=== PATIENT | female | born 1950 | race American Indian/Alaskan Native ===

== ENCOUNTER 2019-10-14 08:05 | Emergency (ER) | payer MEDICARE ==
--- NOTE | 2019-10-14 09:17 | XRay Report ---
Right wrist-2 views INDICATION: trauma. Fall today with generalized wrist pain COMPARISON: None. IMPRESSION: There is a fracture involving the neck of the thumb metacarpal which appears to be old. Otherwise no acute fracture identified. There is mild soft tissue swelling along the dorsal aspect of the wrist/distal forearm and mild degenerative changes in the wrist. Signer Name: Benito Colorado MD Signed: 10/14/2019 9:13 AM Workstation Name: [id number]
[2019-10-14] MEDS ORDERED: HYDROcodone/ACETAMINOPHEN 5-325 MG TAB PO ONE (09:20)
[2019-10-14 09:38] LABS: HCG Qualitative,Urine Negative (Negative)
[2019-10-14 09:45] LABS: Basophils # (Auto) 0.1 K/mm3 (0.0-0.1); Basophils % (Auto) 0.9 % (0.0-1.8); Eosinophils # (Auto) 0.4 K/mm3 (0.0-0.4); Eosinophils % (Auto) 5.4 % (0.0-4.3); Hemoglobin 14.1 gm/dl (10.1-14.3); Lymphocytes # (Auto) 1.9 K/mm3 (1.2-5.4); Lymphocytes % (Auto) 28.3 % (13.4-35.0); Mean Corpuscular HGB Conc 34 % (30-34); Mean Corpuscular Volume 98 fl (79-97); Monocytes # (Auto) 0.6 K/mm3 (0.0-0.8); Monocytes % (Auto) 9.4 % (0.0-7.3); Platelet Count 199 K/mm3 (140-440); Red Blood Count 4.17 M/mm3 (3.65-5.03); Red Cell Distribution Width 13.2 % (13.2-15.2)
[2019-10-14 09:46] LABS: Amphetamine Screen,Urine PRESUMPTIVE NEGATIVE; Benzodiazepines Screen,Urine PRESUMPTIVE NEGATIVE; Cannabinoid Screen,Urine PRESUMPTIVE NEGATIVE; Cocaine Screen,Urine PRESUMPTIVE NEGATIVE; Methadone Screen,Urine PRESUMPTIVE NEGATIVE; Opiate Screen,Urine PRESUMPTIVE NEGATIVE
[2019-10-14] MEDS ORDERED: THIAMINE 100 MG, FOLIC ACID 1 MG, MULTIPLE VITAMIN INJ, ADULT 10 ML in SODIUM CHLORIDE ... IV ONE (10:00)
[2019-10-14 10:01] LABS: INR 1.02 (0.87-1.13)
[2019-10-14 10:02] LABS: Partial Thromboplastin Time 28.1 Sec. (24.2-36.6)
[2019-10-14 10:14] LABS: Creatine Kinase MB 1.2 ng/mL (0.0-4.0)
[2019-10-14 10:16] LABS: Alanine Aminotransferase 34 units/L (7-56); Albumin 4.1 g/dL (3.9-5); BUN/Creatinine Ratio 13; Bilirubin,Direct < 0.2 mg/dL (0-0.2); Blood Urea Nitrogen 8 mg/dL (7-17); Hemolysis Index 22
--- NOTE | 2019-10-14 10:18 | Cat Scan Report ---
CT HEAD WITHOUT CONTRAST INDICATION / CLINICAL INFORMATION: trauma. Head injury secondary to patient fall. TECHNIQUE: All CT scans at this location are performed using CT dose reduction for ALARA by means of automated e xposure control. COMPARISON: None available. FINDINGS: HEMORRHAGE: No evidence of intracranial hemorrhage or extra-axial fluid collection. EXTRA-AXIAL SPACES: Cortical sulci and sylvian fissures are enlarged reflecting a degree of parenchym al volume loss which is within normal limits for the patient's age. Basilar cisterns have an unremark able appearance. VENTRICULAR SYSTEM: The third and lateral ventricles are enlarged reflecting presence of age related parenchymal volume loss. Incidental note is made of developmental asymmetry of the lateral ventricles , right larger. CEREBRAL PARENCHYMA: Periventricular and deep white matter lucency is observed. This is probably seco ndary to microvascular ischemic change. There is no indication of recent infarction. Is evidence of a remote small deep infarction in the right ganglia capsular region. MIDLINE SHIFT OR HERNIATION: There is no mass effect. CEREBELLUM / BRAINSTEM: Brainstem and cerebellum have an unremarkable appearance. INTRACRANIAL VESSELS:Calcified atherosclerotic plaque is present along the course of the cavernous se gments of both internal carotid arteries. Similar findings are seen at the distal vertebral arteries. ORBITS: visualized portions of the orbits have an unremarkable appearance. SOFT TISSUES of HEAD: No significant abnormality. CALVARIUM: Evaluation of bone windows reveals no abnormalities. 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 Paranasal sinuses are free from inflammatory mucosal disease. Mastoid a ir cells are normally pneumatized. ADDITIONAL FINDINGS: None. IMPRESSION: 1. No acute intracranial abnormality. 2. Moderate parenchymal atrophy 3. Remote small deep infarction right gangliocapsular region. Signer Name: Will Devine MD Signed: 10/14/2019 10:14 AM Workstation Name: [id number]
[2019-10-14] MEDS ORDERED: MAGNESIUM SULFATE 2 GM/50 ML BAG IV ONE (13:15)
--- NOTE | 2019-10-14 15:17 | Emergency Department Report ---
ED General Adult HPI - General Chief complaint: Fall Stated complaint: FALL/RT WRIST PAIN Time Seen by Provider: 10/14/19 08:37 Source: patient Mode of arrival: Stretcher Limitations: No Limitations - History of Present Illness Initial comments: 68-year-old female who admits to excessive alcohol consumption. She fell and injured her right wrist. She states that occurred a few hours prior to arrival. She stated she was not sure if she hit her head because it's a little bit sore. However, she denies any loss of consciousness. She has no retrograde amnesia. She denies neck pain back pain or other injury. -: Gradual Location: head (questionable), right, upper extremity Radiation: non-radiation Severity scale (0 -10): 2 Quality: aching Consistency: intermittent Improves with: none Worsens with: none Associated Symptoms: denies other symptoms Treatments Prior to Arrival: none - Related Data Allergies Allergy/AdvReac Type Severity Reaction Status Date / Time No Known Allergies Allergy Verified 10/14/19 08:51 ED Review of Systems ROS: Stated complaint: FALL/RT WRIST PAIN Other details as noted in HPI Constitutional: denies: chills, fever Eyes: denies: eye pain, eye discharge, vision change ENT: denies: ear pain, throat pain Respiratory: denies: cough, shortness of breath Cardiovascular: denies: chest pain, palpitations Endocrine: no symptoms reported Gastrointestinal: denies: abdominal pain, nausea, diarrhea Genitourinary: denies: urgency, dysuria, discharge Musculoskeletal: as per HPI. denies: back pain Skin: denies: rash, lesions Neurological: denies: headache, weakness, paresthesias Psychiatric: denies: anxiety, depression Hematological/Lymphatic: denies: easy bleeding, easy bruising ED Past Medical Hx - Past Medical History Previous Medical History?: Yes Hx Hypertension: Yes Additional medical history: High cholesterol - Surgical History Past Surgical History?: No - Social History Smoking Status: Current Every Day Smoker Substance Use Type: None ED Physical Exam - General Limitations: No Limitations General appearance: alert, in no apparent distress - Head Head exam: Present: atraumatic, normocephalic - Eye Eye exam: Present: normal appearance. Absent: scleral icterus - ENT ENT exam: Present: mucous membranes moist - Neck Neck exam: Present: normal inspection. Absent: tenderness, meningismus - Respiratory Respiratory exam: Present: normal lung sounds bilaterally. Absent: respiratory distress - Cardiovascular Cardiovascular Exam: Present: regular rate, normal rhythm. Absent: systolic murmur, diastolic murmur, rubs, gallop - GI/Abdominal GI/Abdominal exam: Present: soft, normal bowel sounds. Absent: distended, tenderness, guarding, rebound, rigid - Extremities Exam Extremities exam: Present: normal inspection, normal capillary refill. Absent: calf tenderness - Back Exam Back exam: Present: normal inspection - Neurological Exam Neurological exam: Present: alert, oriented X3, CN II-XII intact. Absent: motor sensory deficit - Psychiatric Psychiatric exam: Present: normal affect, normal mood - Skin Skin exam: Present: warm, dry, intact, normal color. Absent: rash ED Course Vital Signs 10/14/19 10/14/19 10/14/19 08:15 08:30 08:35 Temperature 99 F Pulse Rate 80 Respiratory 14 13 Rate Blood Pressure 132/92 [Right] O2 Sat by Pulse 100 100 Oximetry 10/14/19 10/14/19 10/14/19 08:46 09:00 09:16 Temperature Pulse Rate 79 72 72 Respiratory 11 L 13 17 Rate Blood Pressure [Right] O2 Sat by Pulse 98 97 98 Oximetry 10/14/19 10/14/19 10/14/19 09:34 09:54 10:00 Temperature Pulse Rate Respiratory 18 7 L Rate Blood Pressure [Right] O2 Sat by Pulse 99 99 Oximetry 10/14/19 10/14/19 10/14/19 10:16 10:30 10:34 Temperature Pulse Rate Respiratory 18 Rate Blood Pressure [Right] O2 Sat by Pulse 97 99 Oximetry - Reevaluation(s) Reevaluation #1: Patient has no submental complaints. She has been given magnesium banana bag. She is appropriate for outpatient follow-up. 10/14/19 15:17 ED Medical Decision Making - Lab Data Result diagrams: 10/14/19 08:51 10/14/19 08:51 Critical care attestation.: If time is entered above; I have spent that time in minutes in the direct care of this critically ill patient, excluding procedure time. ED Disposition Clinical Impression: Alcohol intoxication Qualifiers: Complication of substance-induced condition: uncomplicated Qualified Code(s): F10.920 - Alcohol use, unspecified with intoxication, uncomplicated Sprain of wrist, right Qualifiers: Encounter type: initial encounter Qualified Code(s): S63.501A - Unspecified sprain of right wrist, initial encounter Disposition: TO HOME OR SELFCARE Is pt being admited?: No Does the pt Need Aspirin: No Condition: Stable Instructions: Abuse of Alcohol (ED), Wrist Injury (ED), Hypomagnesemia (ED) Additional Instructions: Decrease her alcohol use. Magnesium supplements are available [id number]. Take one 500 mg tablet twice a day. Follow-up with primary care provider. Return any acute change or problem. Referrals: PRIMARY CARE, [Primary Care Provider] - 3-5 Days [facility] [Provider Group] - 2-3 Days Forms: Accompanied Note Time of Disposition: 15:18
[2019-10-14 15:51] VITALS: BP 127/84
== END 2019-10-14 15:39 | disposition home or self-care (01) ==
LOC: ED 08:05
DX: S63.501A Unspecified sprain of right wrist, initial encounter (principal); S09.90XA Unspecified injury of head, initial encounter; I10 Essential (primary) hypertension; E78.00 Pure hypercholesterolemia, unspecified; F17.200 Nicotine dependence, unspecified, uncomplicated; F10.120 Alcohol abuse with intoxication, uncomplicated; W18.39XA Other fall on same level, initial encounter; Y93.89 Activity, other specified; Y92.89 Other specified places as the place of occurrence of the external cause; Y99.8 Other external cause status
CPT/HCPCS: 36415; 70450; 73100; 80048; 80076; 80307; 81025; 82550; 82553; 83735; 84484; 85025; 85610; 85730; 93005; 93010; 96365; 96366; 96368; 99285; J3411; J3475; J7030; 80320; G0480